=== PATIENT | male | born 1980 | race Caucasian/White ===

== ENCOUNTER 2016-08-13 04:56 | Emergency (ER) | payer OTHER ==
[~2016-08-13] VITALS: Ht 190.5 cm; Wt 79.4 kg
[~2016-08-13 04:56] MED LIST: NKHM
[2016-08-13] MEDS ORDERED: ZYRTEC10 MG PO (05:10)
[2016-08-13] MEDS ORDERED: ANUSOL-HC25 MG R (05:39)
[2016-08-13] MEDS ORDERED: ANUSOL HC30 GM PO (05:39)
== END 2016-08-13 06:24 | disposition home or self-care (01) ==
LOC: ED 04:56
DX: K64.4 Residual hemorrhoidal skin tags (principal)